=== PATIENT | female | born 1960 | race Caucasian/White ===

== ENCOUNTER 2018-11-11 17:24 | Emergency (ER) | payer BC ==
[2018-11-11] MEDS ORDERED: Fentanyl 100 MCG/2 ML VIAL ONE ×2 (17:47→18:28)
[2018-11-11 17:55] LABS: #Basophils 0.1 thou/uL (0.0-0.2); #Eosinphils 0.2 thou/uL (0.0-0.7); #Lymphocytes 2.4 thou/uL (1.20-3.40); #Monocytes 0.6 thou/uL (0.11-0.59); #Neutrophils 11.2 thou/uL (1.40-6.50); %Basophils 0.6 % (0.0-1.0); %Eosinophils 1.2 % (0.0-10.0); %Lymphocytes 16.5 % (21.0-51.0); %Neutrophils 77.7 % (42.0-75.0); Hemoglobin 14.1 g/dL (12.0-16.0); Mean Corpuscular HGB CONC 33.9 g/dL (32.0-36.0); Mean Corpuscular Hemoglobin 30.1 pg (27.0-31.0); Mean Corpuscular Volume 88.6 fL (78.0-98.0); Mean Platelet Volume 7.6 fL (7.4-10.4); Platelet Count 143 thou/uL (130-400); RBC Distribution Width 11.9 % (11.5-14.5); Red Blood Cell (RBC) Count 4.68 mill/uL (4.20-5.40); White Blood Cell (WBC) Count 14.3 thou/uL (4.8-10.8)
[2018-11-11 18:09] LABS: ALT (SGPT) 25 U/L (8-55); AST (SGOT) 32 U/L (5-34); Albumin 4.6 g/dL (3.5-5.0); Alkaline Phosphatase 78 U/L (40-150); Anion Gap 17 mmol/L (10-20); BUN (Urea Nitrogen) 20 mg/dL (9.8-20.1); Bilirubin, Total 0.6 mg/dL (0.2-1.2); Calc. Creatinine Clearance 0 mL/min (70-130); Calcium 9.7 mg/dL (7.8-10.44); Carbon Dioxide 22 mmol/L (22-29); Chloride 104 mmol/L (98-107); Estimated GFR-MDRD 53; Globulin 3.1 g/dL (2.4-3.5); Glucose 165 mg/dL (70-105); Lipase 30 U/L (8-78); Potassium 3.3 mmol/L (3.5-5.1); Protein, Total 7.7 g/dL (6.0-8.3); Sodium 140 mmol/L (136-145)
[2018-11-11] MEDS ORDERED: Ondansetron PF 4 MG/2 ML Vial ONE (19:00)
[2018-11-11] MEDS ORDERED: Morphine 4 MG/ML VIAL ONE (19:00)
--- NOTE | 2018-11-11 20:07 | CT ---
CT OF THE BRAIN WITHOUT CONTRAST: 11/11/[address] of the brain was done following trauma. Axial slices were acquired, then coronal and sagitt al reconstructions were done. No fracture was seen in the skull. No intracranial bleeding or extra-axial hematoma was seen. The sof t tissues were unremarkable. There is no sign of stroke, mass, or edema. The ventricular sizes are n ormal. The sphenoid sinus and mastoid air cells are clear. IMPRESSION: No acute intracranial findings. POS: HOME
--- NOTE | 2018-11-11 20:08 | CT ---
CT CERVICAL SPINE: 11/11/2018 HISTORY/TECHNIQUE: A spiral CT of the cervical spine is performed for evaluation following trauma. Axial slices are acq uired and then coronal and sagittal reconstructions are done. FINDINGS: No fracture, dislocation, or acute bony change is seen. The C1 to dens distance is normal, and the s oft tissues are normal in thickness. Disk space narrowing is present at C4-C5, C5-C6, and C6-C7. Fi ndings by level follow: C1-C2: There is an ossicle at the top of the odontoid process, presumably an os odontoideum or simil ar structure. It does not appear to be connected to recent trauma. The C1 to dens distance is jey l. C2-C3: Significant left facet arthritis and mild left foraminal narrowing. Very minor anterolisthes is of C2 on C3, probably due to the facet changes. C3-C4: Significant left facet arthritis and mild left foraminal narrowing. C4-C5: Significant posterior osteophyte that narrows the AP diameter of the canal to 9 to 10 mm at t his level. Mild right foraminal narrowing. C5-C6: Significant right posterior-central osteophyte that causes some right lateral recess narrowin g and moderate right foraminal narrowing. There is also moderate left foraminal narrowing. C6-C7: No acute fracture. C7-T1: No acute findings. IMPRESSION: Significant degenerative changes, as noted above. No acute traumatic change. POS: HOME
--- NOTE | 2018-11-11 20:16 | CT ---
CT CHEST AND ABDOMEN AND PELVIS WITH CONTRAST: 11/11/2018 HISTORY/TECHNIQUE: A spiral CT of the chest, abdomen, and pelvis was done following trauma. Axial slices were acquired and then coronal and sagittal reconstructions were done. FINDINGS: THORAX: There are relatively undisplaced fractures of the right 3rd through 8th ribs, laterally. A very small pneumothorax is present on the right, less than 10% at this point in time. There is no si gnificant pleural fluid present. The left lung appears intact and clear. The mediastinum showed no sign of hematoma. The aorta appears intact. No parenchymal contusions are appreciated. ABDOMEN: The liver, spleen, pancreas, adrenal glands, kidneys, gallbladder, and abdominal aorta all appear intact. There is no sign of laceration or hematoma involving any major organ. No free air or free fluid is seen. The bowel shows no distention or wall thickening. PELVIS: No pelvis masses, fluid collections, or hematomas. The pelvis bones appear intact. The lum bar spine shows no fracture. The thoracic spine shows no fracture. IMPRESSION: Fractures of the right 3rd through 8th ribs with resulting small right pneumothorax. Exam otherwise shows no acute change. POS: HOME
[2018-11-11 20:48] LABS: Clarity Clear (Clear); Specific Gravity, Urine 1.015 (1.005-1.030)
[2018-11-11 20:49] LABS: Bilirubin Negative (Negative); Blood, Urine Negative (Negative); Glucose, Urine (Dipstick) Negative (Negative); Leukocyte Negative (Negative); Nitrite Negative (Negative); Protein, Urine (Dipstick) Negative (Neg-Trace); Urobilinogen 0.2 mg/dL (0.2-1.0)
[2018-11-12] MEDS ORDERED: Morphine 4 MG/ML VIAL ONE ×2 (00:10→07:55)
[2018-11-12] MEDS ORDERED: Ondansetron PF 4 MG/2 ML Vial ONE (00:50)
--- NOTE | 2018-11-12 07:39 | RAD ---
RIGHT ELBOW 2 VIEWS: Date: 11/11/18 There has been a prior extensive open reduction and internal fixation of fractures of the distal lizett denys and proximal ulna. Plates and screws are in place from that surgery. I could not appreciate any a cute fracture or joint effusion. IMPRESSION: Old surgical changes, but no acute findings. POS: HOME
--- NOTE | 2018-11-12 20:28 | RAD ---
AP PORTABLE CHEST: 11/12/2018 0744 hours FINDINGS: An AP portable film shows multiple rib fractures on the right side, laterally. See CT report to foll ow. It is difficult to confirm a pneumothorax on these pain radiographs, but a small one is visible on CT. The lungs are otherwise clear. There are no effusions. The heart size is normal. IMPRESSION: Multiple right-sided rib fractures. POS: HOME
== END 2018-11-12 09:45 | disposition home or self-care (01) ==
LOC: BURERS 17:24
DX: S22.41XA Multiple fractures of ribs, right side, initial encounter for closed fracture (principal); S27.0XXA Traumatic pneumothorax, initial encounter; M47.892 Other spondylosis, cervical region; Z87.891 Personal history of nicotine dependence; W01.0XXA Fall on same level from slipping, tripping and stumbling without subsequent striking against object, initial encounter
CPT/HCPCS: 70450; 71045; 71260; 72125; 74177; 80053; 81003; 83690; 85025; 94760; 96361; 96374; 96375; 96376; G0390; J2270; J2405; J3010

== ENCOUNTER 2018-12-04 15:10 | Outpatient (CLI) | payer BC ==
--- NOTE | 2018-12-04 21:04 | RAD ---
CHEST TWO VIEWS: 12/04/18 Comparison is made with a 11/12/18 study. The heart is normal in size. there is no mediastinal widening or shift. The lungs are fully inflated and clear. There is no sign of infiltrate, effusion, or pneumothorax. Pleural thickening is seen roni g the right lateral chest wall near the site of prior rib fractures. IMPRESSION: No acute finding. POS: HOME
--- NOTE | 2018-12-04 21:41 | RAD ---
RIGHT RIBS THREE VIEWS: 12/04/18 Fractures of the third through eighth ribs posterolaterally are noted as before. No new fractures wer e detected. There is some mild pleural thickening along the right lateral chest wall as expected near the sites of fractures. I see no pneumothorax, pulmonary infiltrate, or pleural effusion. IMPRESSION: Rib fractures as before with no acute findings. POS: HOME
== END 2018-12-04 15:11 | disposition home or self-care (01) ==
LOC: BURRAD 15:10
PROVIDERS: ATTEND Internal Medicine
DX: S22.41XD Multiple fractures of ribs, right side, subsequent encounter for fracture with routine healing (principal); J93.9 Pneumothorax, unspecified
CPT/HCPCS: 71046

== ENCOUNTER 2020-02-27 11:36 | Emergency (ER) | payer BC, OTHER ==
--- NOTE | 2020-02-27 13:05 | RAD ---
RIGHT FOOT THREE VIEWS: Date: 02-27-2020 FINDINGS: There is an acute oblique fracture of the distal phalanx of the great toe. The fracture does not appe ar to reach the IP joint. Remainder of the foot showed no acute change. Old bunion surgery of the fir st metatarsal was noted. An os naviculare was seen. IMPRESSION: Acute undisplaced fracture of the distal phalanx of the great toe. Code T POS: HOME
[2020-02-27] MEDS ORDERED: Ibuprofen 200 MG TAB ONE (13:31)
== END 2020-02-27 14:00 | disposition home or self-care (01) ==
LOC: BURERS 11:36
DX: S92.425A Nondisplaced fracture of distal phalanx of left great toe, initial encounter for closed fracture (principal); Z87.891 Personal history of nicotine dependence; W20.8XXA Other cause of strike by thrown, projected or falling object, initial encounter